=== PATIENT | female | born 1990 | race African-American/Black ===

== ENCOUNTER 2022-06-09 11:37 | Emergency (ER) | payer MEDICAID ==
[~2022-06-09] VITALS: Ht 172.7 cm; Wt 135.0 kg
[2022-06-09 11:50] VITALS: BP 176/98
== END 2022-06-09 16:13 | disposition home or self-care (01) ==
LOC: ER 11:37
DX: O98.53 Other viral diseases complicating the puerperium (principal); B34.9 Viral infection, unspecified; R06.02 Shortness of breath; R09.3 Abnormal sputum
CPT/HCPCS: 71045; 99283